=== PATIENT | female | born 2000 | race Caucasian/White ===

== ENCOUNTER 2023-05-11 08:25 | Emergency (ER) | payer BC ==
[~2023-05-11] VITALS: Ht 167.6 cm; Wt 61.2 kg
[2023-05-11 08:41] VITALS: BP 104/62; TEMP 98.3; O2SAT 96
== END 2023-05-11 10:44 | disposition left against medical advice (07) ==
LOC: ER 08:25
DX: R11.2 Nausea with vomiting, unspecified (principal); Z53.21 Procedure and treatment not carried out due to patient leaving prior to being seen by health care provider